=== PATIENT | male | born 1990 | race Hispanic/Latino ===

== ENCOUNTER → 2017-12-14 | Outpatient (CLI) | payer OTHER | LOC: M RAD 09:38 | DX: M25.512 Pain in left shoulder (principal) | CPT/HCPCS: 73030 ==

== ENCOUNTER → 2018-07-10 | Outpatient (CLI) | payer OTHER ==
--- NOTE | 2018-07-11 02:18 | REP ---
Clinical: Trauma. Technique: AP, lateral, bilateral oblique views left ankle . Findings: The osseous structures and joint spaces are intact and normal. There is no evidence for acute fracture or dislocation. Surrounding soft tissues are unremarkable. No subcutaneous emphysema or radiodense foreign body. Impression: Normal left ankle series. No acute fracture or dislocation. Electronically Signed by Apolinar Guerrero MD 07/11/2018 02:09 A
--- NOTE | 2018-07-11 02:21 | REP ---
Clinical: Trauma. Technique: AP, lateral, bilateral oblique and sunrise views left knee. Findings: The osseous structures and joint spaces are intact and normal. There is no evidence for acute fracture or dislocation. No joint effusion is appreciated. Surrounding soft tissues are unremarkable. No subcutaneous emphysema or radiodense foreign body. Impression: Normal age-appropriate left knee examination. No acute fracture or dislocation. Electronically Signed by Apolinar Guerrero MD 07/11/2018 02:12 A
== END ==
LOC: M RAD 08:37
PROVIDERS: ATTEND Surgery
DX: S90.02XA Contusion of left ankle, initial encounter (principal); S80.02XA Contusion of left knee, initial encounter; X58.XXXA Exposure to other specified factors, initial encounter; Y92.89 Other specified places as the place of occurrence of the external cause

== ENCOUNTER → 2018-11-17 | Outpatient (CLI) | payer OTHER ==
--- NOTE | 2018-11-17 09:02 | REP ---
Clinical: Trauma. Technique: AP, lateral, bilateral oblique views left fourth digit . Findings: The osseous structures and joint spaces are intact and normal. There is no evidence for acute fracture or dislocation. Surrounding soft tissues are unremarkable. No subcutaneous emphysema or radiodense foreign body. Impression: No acute fracture or dislocation. Electronically Signed by Apolinar Guerrero MD 11/17/2018 08:53 A
== END ==
LOC: M RAD 08:31
PROVIDERS: ATTEND Surgery
DX: S69.92XA Unspecified injury of left wrist, hand and finger(s), initial encounter (principal); W23.0XXA Caught, crushed, jammed, or pinched between moving objects, initial encounter; Y92.89 Other specified places as the place of occurrence of the external cause